=== PATIENT | male | born 1990 | race Caucasian/White ===

== ENCOUNTER 2016-06-07 22:04 | Emergency (ER) | payer OTHER ==
[2016-06-07 23:00] VITALS: BP 118/75
[2016-06-07] MEDS ORDERED: Penicillin VK TAB* 250 MG PO ONE (23:09)
--- NOTE | 2016-06-07 23:09 | ED ---
Throat Pain/Nasal Congestion - HPI Summary HPI Summary: 25M presents with left upper dental pain for couple weeks. States pain has gotten worst over past couple days. states pain is in his wisdom tooth. denies any fever, swelling around the eye, or pain with eye movement. has tried tyenlol and ibuprofen for pain without relief. - History of Current Complaint Chief Complaint: EDDentalPain Time Seen by Provider: 06/07/16 22:42 - Allergies/Home Medications Allergies/Adverse Reactions: Allergies Allergy/AdvReac Type Severity Reaction Status Date / Time No Known Allergies Allergy Verified 07/21/14 18:46 PMH/Surg Hx/FS Hx/Imm Hx Endocrine/Hematology History: Denies: Hx Anticoagulant Therapy Cardiovascular History: Denies: Hx Hypertension Infectious Disease History: No Infectious Disease History: Denies: Traveled Outside the [place] in Last 30 Days - Family History Known Family History: Positive: Hypertension - Social History Alcohol Use: None Substance Use Type: Reports: None Smoking Status (MU): Heavy Every Day Tobacco Smoker Type: Cigarettes Amount Used/How Often: 1 PPD Have You Smoked in the Last Year: Yes Review of Systems Negative: Fever Positive: Dental Pain Negative: Chest Pain Negative: Shortness Of Breath All Other Systems Reviewed And Are Negative: Yes Physical Exam Triage Information Reviewed: Yes Vital Signs On Initial Exam: Initial Vitals Temp Pulse Resp Pulse Ox 97.9 F 110 18 99 06/07/16 22:38 06/07/16 22:38 06/07/16 22:38 06/07/16 22:38 Vital Signs Reviewed: Yes Appearance: Positive: Pain Distress Skin: Positive: Warm, Dry Head/Face: Positive: Normal Head/Face Inspection Eyes: Positive: Normal, Conjunctiva Clear ENT: Positive: Normal ENT inspection, Pharynx normal, TMs normal Dental: Positive: Percussion Tenderness @ - 16, Gross Decay/Caries @ - throughout. Negative: Abscess @ Neck: Positive: Supple, Nontender, No Lymphadenopathy Respiratory/Lung Sounds: Positive: Clear to Auscultation Cardiovascular: Positive: Normal, RRR Diagnostics - Vital Signs Vital Signs Temp Pulse Resp BP Pulse Ox 06/07/16 22:48 97.9 F 110 18 118/75 99 06/07/16 22:38 97.9 F 110 18 99 - Laboratory Lab Statement: Any lab studies that have been ordered have been reviewed, and results considered in the medical decision making process. EENT Course/Dx - Course Course Of Treatment: 25M presents with dental pain for couple weeks that has gotten worst over past couple days. denies any fever or pain with eye movement. no sign abscess on exam. will treat with PCN and gave toradol prescription for pain. patient understands and agrees with plan - Differential Diagnoses Differential Diagnoses: Dental Abscess, Dental Caries, Fractured Tooth - Diagnoses Provider Diagnoses: Pain, dental Discharge - Discharge Plan Condition: Guarded Disposition: HOME Prescriptions: Ketorolac TAB (NF) [Toradol TAB (NF)] 10 mg PO Q8H #15 tab Penicillin VK TAB* [Penicillin VK 250 mg Tab*] 500 mg PO BID #13 tab Patient Education Materials: Dental Caries (ED) Referrals: Moisés Ceja MD [Primary Care Provider] - Additional Instructions: Take antibiotics: 2 times a day for 7 days, first dose given in ED Use toradol every 8 hours for pain Avoid hard, crunchy food until seen by dentist Follow up with dentist as soon as possible Return to ED if develop fever, shortness of breath, pain with eye movement or swelling around eye Images - Images Dental: 1 - pain
[2016-06-07] MEDS ORDERED: Ketorolac INJ* 60 MG/2 ML VIAL IM ONE (23:10)
== END 2016-06-07 23:42 | disposition home or self-care (01) ==
LOC: ED 22:04
DX: K08.89 Other specified disorders of teeth and supporting structures (principal); F17.210 Nicotine dependence, cigarettes, uncomplicated
CPT/HCPCS: 96372; 99282; A9270-GY; J1885

== ENCOUNTER 2016-06-09 01:03 | Emergency (ER) | payer OTHER ==
[2016-06-09 01:10] VITALS: BP 113/76
[2016-06-09] MEDS ORDERED: Ibuprofen TAB* 600 MG PO ONE (01:21)
[2016-06-09] MEDS ORDERED: Penicillin VK TAB* 250 MG PO ONE (01:21)
[2016-06-09] MEDS ORDERED: Ibuprofen TAB* 600 MG ONE (01:23)
--- NOTE | 2016-06-09 01:41 | ED ---
Everton Pacheco Aidan, scribed for Timmy Ayala MD on 06/09/16 at 0133 . Throat Pain/Nasal Congestion - HPI Summary HPI Summary: 25 y/o male presents to the ED with a complaint of acute, constant, moderate, left upper dental pain that has persisted for the past 2 weeks. He was here yesterday for the same thing and states that he was prescribed antibiotics and given a shot of Toradol. He is here today requesting another shot of Toradol because he has not yet filled the prescription. - History of Current Complaint Chief Complaint: EDDentalPain Time Seen by Provider: 06/09/16 01:18 Hx Obtained From: Patient Onset/Duration: Gradual Onset, Lasting Weeks, Still Present Severity: Moderate Associated Signs And Symptoms: Positive: Negative Cough: None - Allergies/Home Medications Allergies/Adverse Reactions: Allergies Allergy/AdvReac Type Severity Reaction Status Date / Time No Known Allergies Allergy Verified 06/09/16 01:10 PMH/Surg Hx/FS Hx/Imm Hx Endocrine/Hematology History: Denies: Hx Anticoagulant Therapy Cardiovascular History: Denies: Hx Hypertension Infectious Disease History: No Infectious Disease History: Denies: Traveled Outside the [place] in Last 30 Days - Family History Known Family History: Positive: Hypertension - Social History Occupation: Unemployed Lives: With Family Alcohol Use: None Substance Use Type: Reports: None Smoking Status (MU): Heavy Every Day Tobacco Smoker Type: Cigarettes Amount Used/How Often: 1 PPD Have You Smoked in the Last Year: Yes Review of Systems Constitutional: Negative Eyes: Negative Positive: Dental Pain. Negative: Epistaxis, Sore Throat, Ear Ache, Nasal Discharge Cardiovascular: Negative Respiratory: Negative Gastrointestinal: Negative Genitourinary: Negative Musculoskeletal: Negative Skin: Negative Neurological: Negative Psychological: Normal All Other Systems Reviewed And Are Negative: Yes Physical Exam Triage Information Reviewed: Yes Vital Signs On Initial Exam: Initial Vitals Temp Pulse Resp BP Pulse Ox 97.8 F 93 16 113/76 99 06/09/16 01:05 06/09/16 01:05 06/09/16 01:05 06/09/16 01:05 06/09/16 01:05 Vital Signs Reviewed: Yes Appearance: Positive: Well-Appearing, No Pain Distress Skin: Positive: Warm Head/Face: Positive: Normal Head/Face Inspection Eyes: Positive: SHELIA Dental: Positive: Gross Decay/Caries @ - diffuse Respiratory/Lung Sounds: Positive: Clear to Auscultation Psychiatric: Positive: Affect/Mood Appropriate Diagnostics - Vital Signs Vital Signs Temp Pulse Resp BP Pulse Ox 06/09/16 01:05 97.8 F 93 16 113/76 99 - Laboratory Lab Statement: Any lab studies that have been ordered have been reviewed, and results considered in the medical decision making process. EENT Course/Dx - Course Course Of Treatment: 25 y/o male presents to the ED with a complaint of acute, constant, moderate, left upper dental pain that has persisted for the past 2 weeks. Yesterday, he came in with the same complaint, was prescribed antibiotics and was given a shot of Toradol. Today, he will be given Motrin and will be discharged. - Diagnoses Provider Diagnoses: Pain, dental Discharge - Discharge Plan Condition: Stable Disposition: HOME Discharge Disposition Comment: Please follow up with your PCP within 2 days. Patient Education Materials: Toothache (ED) Referrals: Moisés Ceja MD [Primary Care Provider] - The documentation as recorded by the Everton benedict Aidan accurately reflects the service I personally performed and the decisions made by me, iTmmy Ayala MD.
== END 2016-06-09 01:26 | disposition home or self-care (01) ==
LOC: ED 01:03
DX: K08.89 Other specified disorders of teeth and supporting structures (principal); F17.210 Nicotine dependence, cigarettes, uncomplicated
CPT/HCPCS: 99281; A9270-GY